=== PATIENT | female | born 1960 | race Caucasian/White ===

== ENCOUNTER 2017-08-24 10:50 | Emergency (ER) | payer BC ==
--- OUTSIDE RECORDS SUMMARY | 2017-08-24 11:01 | XMS REPORT ---
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 Active Onset: 12/03/2010 Uterine leiomyoma Catalina Weathers M.D. Active Onset: 12/11/2010 Arthralgia of the upper arm Loreta Johnson M.D. Active Onset: 01/27/2011 Myalgia & Myositis Unspec Catalina Weathers M.D. Active Onset: 02/07/2011 Arthralgia of the ankle and/or Catalina Weathers M.D. Active foot Onset: 02/07/2011 Crushing injury of foot Catalina Weathers M.D. Active Onset: 03/10/2011 Dyspnea Catalina Weathers M.D. Active Onset: 03/10/2011 Neck pain Catalina Weathers M.D. Active Onset: 04/25/2011 Arthralgia of the lower leg Catalina Weathers M.D. Active Onset: 08/16/2012 Low back pain Radha Brown M.D. Active Onset: 08/16/2012 Allergic condition Radha Brown M.D. Active Onset: 07/26/2017 Iron deficiency anemia secondary Radha Brown M.D. Active to inadequate dietary iron intake Onset: 07/26/2017 Irritable bowel syndrome with Radha Brown M.D. Active diarrhea Onset: 07/26/2017 Essential hypertension Radha Brown M.D. Active Onset: 06/16/2014 Acute frontal sinusitis Giancarlo Mackay M.D. Active Onset: 01/27/2011 Seizure Catalina Weathres M.D. Resolved Resolved: 03/24/2011 Family History Date Family Member(s) Problem(s) Comments Father due to of leukemia at 59 yo () Mother HTN, burst cerebral aneurysm now paralyzed on the left. Lives in [place] with step dad. First Son healthy. sleep disorder - hypersomnia. anxiety disorder, dissociative disorder. Number of Siblings Siblings: 2 First Brother healthy. [place]. Second Brother HTN. lives in [place]. estranged. First Sister age 40's dt kidnapping and murder. Adopted. 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 Cigarette Use Denies Tobacco Use ETOH Use Some Smoking Patient has never smoked Daily Caffeine Consumes on average 3 cups of tea per day Exercise Type/Frequency Exercises sporadically Current Allergies, Adverse Reactions, Alerts Date Description Reaction Status Severity Comments 02/07/2011 Cymbalta active severe nausea 12/03/2010 NKDA inactive Medications Medication Date Status Form Strength Qnty SIG Indications Ordering Provider Tramadol HCL Active Tablets 50mg 50tabs 1 by Radha Cervantes / mouth Kevin, every 6 M.D. hours as needed pain pune Debbie Vitamin Active 1000mg 1 po bid Unknown C With Lucy Hips / Debbie Vitamin Active 2000mg 2 po qd Unknown D3 Debbie Elrama 3 Active 1 po bid Unknown Fish Oil / [employer] Q10 Active 200mg 1 po bid Unknown / Eliquis Active Tablets 5mg 60tabs take one Radha L. tablet Kevin, by mouth M.D. twice a day Lisinopril Active Tablets 10mg 30tabs 1 by Radha L. / mouth Kevin, every M.D. day Ferrous Sulfate Active Tablets 325(65Fe) 100tabs 1 by Radha L. / mg mouth Kevin, every M.D. day Doxycycline 07/16 Hx Capsules 100mg 20caps 1 by Ana Paula Villa /2014 mouth Hakan, - twice a Afnp-C Augmentin 06/16 Hx Tablets 500-125mg 16tabs 1 by Giancarlo Bustamante /2014 mouth Thompson, - twice a M.D. With Meals Work Note 06/16 Hx patient Giancarlo Bustamante /2014 seen Thompson, - here M.D. 07/26 will be out of work for 3-4 days Clarithromycin 06/09 Hx Tablets 500mg 20tabs 1 by Lois Arteaga /2014 mouth Darlow, - twice a M.D. Piroxicam 05/10 Hx Capsules 20mg 30caps take one 724.2 Radha Megan capsule Kevin, - by mouth M.D. 07/26 day with food Cheratussin ac 04/17 Hx Syrup 100-10mg/ 150ml 5 ml 786.2 5ML every 12 Josette, - hrs prn [employer] 01/16 cough Proair HFA 04/17 Hx Aerosol 108(90Bas 1units 2 puffs 786.2 e) qid prn [place]akan, - mcg/Act cough / Afnp-C 07/26 wheeze Work Note 04/17 Hx pls 787.91 excuse Josette, - due to [employer] 01/16 illness /201304/22/13 Amoxicillin 03/27 Hx Tablets 875mg 28tabs 1 po bid 461.9 Josette, - [employer] 04/17 Brace With 03/27 Hx disp # 1 726.32 Lauraisaiah Pedrazaion, Elbow Josette, - [employer] 06/09 Omeprazole 02/05 Hx Tablets 20mg 30tabs [address] [facility] 04/17 [facility] [place] Gentamicin 02/05 Hx Solution 0.3% 1dropper 1-2 372.30 Richard Collado, Sulfate drops to M.D. - affected 03/27 every 3 hrs while awake Hydrochlorothiaz 10/08 Hx Tablets 25mg 30tabs Take One 782.3 Radha Cervantes chiara Tablet Kevin, - By Mouth M.D. 07/26 Every Day Amoxicillin/Clav 07/24 Hx Tablets 875-125mg 20tabs take one 382.00 Laura joseanate tab po Josette, Potassium - bid x 10 [employer] Start Low And Go 06/22 Hx Start at 724.2 Radha Cervantes Slow. /03/02 stephanie Brown, - each M.D. 02/04 way Piroxicam 04/19 Hx Capsules 20mg 30caps Take One 724.2 Radha Cervantes Capsule Kevin, - By Mouth M.D. 05/10 Day With Food Hydrocodone/Acet 04/02 Hx Tablets 5-500mg 40tabs 1 po 724.2 Cheng A. aminophen /2012 q4-6h Radha Hanson - prn pain 06/22 Cyclobenzaprine 04/02 Hx Tablets 5mg 20tabs one to 724.2 Richard Collado, HCL two M.D. - tablet 07/26 qhs prn /2017 Physical Therapy 04/02 Hx 1units treatmen 724.2 Cheng A. /2012 t and Radha Hanson - evaluati 06/22 on low back pain Acetaminophen/Co 11/17 Hx Tablets 300-30mg 20tabs 1-2 po 719.46 Radha avery #3 /2011 at hs. Kevin, - M.D. 03/08 Acetaminophen/Co 09/12 Hx Tablets 300-30mg 20tabs 1-2 po 729.5 Radha avery #3 /2011 at hs. Kevin - Radha 03/08 Piroxicam 09/12 Hx Capsules 20mg 30caps take 1 728.71 Radha L. /2011 capsule Kevin, - by mouth M.D. 04/02 once daily with food Ventolin HFA 08/08 Hx Aerosol 108(90Bas 1units inhale 2 Loreta M. /2011 e) mcg/ac puffs by LaFace, - mouth M.D. 06/22 every hours if needed Xopenex HFA 08/07 Hx Aerosol 45mcg/Act 1units 2 puffs 786.2 Loreta M. /2011 every 4 LaFace, - hours M.D. 08/07 prn Ceftin 08/07 Hx Tablets 250mg 14tabs 1 po bid 786.2 Loreta M. /2011 for 7 LaFace, - days M.D. 09/12 Proair HFA 08/07 Hx Aerosol 108(90Bas 1units 2 puffs Loreta M. e) mcg/ac every 4 LaFace, - hours as M.D. 06/22 Augmentin 06/28 Hx Tablets 875-125mg 20tabs 1 tab PO Giancarlo Bustamante bid Marvni Mackay M.D. 08/07 Tylenol Extra 05/30 Hx Tablets 500mg 2 Family Strength tablets Medicine - q 8 prn [facility] 07/26 for pain [facility] [place] /2017 Flexeril 03/10 Hx Tablets 10mg 30tabs 1 tab po Catalina Elizabeth /2011 q back Jasiel, - pain/spa M.D. 08/07 Stress Support 02/07 Hx Tablets 1 po qd Family Multivitamin /2010 Medicine - [facility] 06/22 [facility] [place] Herbal Tea For 02/07 Hx goldenro Family Sinus /2010 d, Medicine - echinace [facility] 06/22 a leaf, [facility] [place] birch bark, wild mint, goldense al, and peppermi nt Herbal Tea For 02/07 Hx willow, Family Arthritis /2010 birch Medicine - bark, St [facility] 06/22 [facility] wort, cleavers , nettle Tyra Extract 02/07 Hx passoin Family /2011 flower, Medicine - verain, Associates 06/22 oats, Of english chammile , Antonio's wort, skullcap Aller Aid W02/07 Hx vit c Family 250mg, Medicine - nettle [facility] 07/26 150mg, Of querceti n 275mg, N-acetyl e cysteine 300mg Ibuprofen 02/07 Hx Tablets 200mg 2 po q Family 12h with Medicine - food prn Associates 05/30 for pain Of Cymbalta 01/[address] 30mg 7caps 1 tab po Catalina D. Part qd x 1 [place], - week M.D. 02/07 Cymbalta 01/[address] 60mg 21caps 1 po qd Catalina D. Part Jasiel, - M.D. 02/07 Doxycycline 01/13 Hx Capsules 100mg 2caps 2 po one Luisbailey Mccrary Hymaruate time Fidelina, - M.D. 01/15 Physical Therapy 12/11 Hx right 719.42 Loreta M. elbow Alex, - pain, M.D. 01/13 lateral epicondy litis, assess and treat Elbow Strap For 12/11 Hx wear on 719.42 Loreta M. Tennis Elbow right LaFvirgie, - elbow as M.D. 01/13 Xray 12/11 Hx r elbow Loreta M. xray,dx Alex, - pain and M.D. 01/13 hx injury to r elbow as a child Augmentin 12/03 Hx Tablets 875-125mg 14tabs 1 tab PO Catalina D. bid x 7 [place], - days M.D. 12/11 Cephalexin 04/18 Hx Tablets 500mg 30tabs 1 po tid 466.0 Radha L. with Kevin - yogurt/k M.D. 12/03 efir Amoxicillin 04/29 Hx Capsules 500mg 30caps 1 po tid 461.0 Dione /2009 x 10d Beverly, - [employer] 12/03 Provigil 04/11 Hx Tablets 200mg 30tabs 1 po qam Marvin Munguia M.D. 12/25 dx: chronic fatigue syndrome Cymbalta 04/[address] 30mg Samples 1 po qd Part Marvin Munguia M.D. 12/25 Work Note 04/11 Hx pt has chronic Marvin Munguia fatigue Radha 12/25 which causes increase d somnolen ce and can decrease work producti vity at times Augmentin 03/04 Hx Tablets 500mg 20tabs 1 po bid 461.0 Cheng A. with Radha Hanson - food x 04/11 10 Zithromax 01/21 Hx Tablets 250mg 6Tabs 2 po qd 466.0 Dione today , Beverly, - then 1 [employer] 03/04 po qd times 4 Xopenex Hfa 01/21 Hx Aerosol 45mcg/Act 1units 2 puff 466.0 every Beverly, - 4-6 [employer] prn Note No Work 01/21 Hx karma 466.0 was seen Beverly - by id [employer] 04/11 for illness since \\ and may return to work tomorrow , Amoxicillin 12/24 Hx Tablets 875mg 20tabs 1 PO bid Marvin Munguia M.D. 01/21 Physical Therapy 10/16 Hx treatmen Jered Klein Viviana - evalulazara Garcia 01/21 on groin muscle strain Vitamin C 09/25 Hx Tablets 1000mg 0tabs 1 PO qd [facility] - [facility] 12/03 Of Multivitamins 09/25 Hx Tablets 1 PO qd [facility] 12/03 [place] Zithromax 04/11 Hx Tablets 250mg 3tabs 2 tabs 465.9 Cheng A. po for Radha Hanson - three 07/08 days then one tab po daily for three days Augmentin 03/14 Hx Tablets 500mg;125 20tabs one tab 465.9 Cheng A. mg po bid Radha Hanson - for 10 Xopenex 10/04 Hx Solution 0.63mg/3 1Box nebulize ML r q6h shahida Banerjee - prn M.DMegan 07/08 wheezing Albuterol 09/29 Hx Tablets Inhaler 3tabs 2 puffs qid prn Medicine - wheeze [facility] 07/08 [facility] [place] Prednisone 09/29 Hx Pills 20mg 25units 3 tabs x 2 days shahida Banerjee - then 2 M.DMegan 03/14 tabs 2 days then 1 tab for 2 days then 1/2 tab for 2 days Nebulizer 09/29 Hx 1units use as directed Marvin Munguia.DMegan 07/08 Out Of Work 09/29 Hx out of work for shahida Banerjee, - medical M.DMegan 03/14 illness until 10/02/06 Augmentin 09/23 Hx Tablets 875mg 20tabs 1 po bid Jered TMegan with Leticia, - food M.D. 03/14 Concerta 04/26 Hx Tablets 54mg 30tabs 1 po qd hsahida Banerjee - M.DMegan 03/14 Augmentin 04/03 Hx Tablets 875mg;125 28tabs 1 po bid mg shahida Banerjee - M.DMegan 04/26 Zithromax 03/22 Hx Capsules 250mg 6caps 2 tabs po x1, shahida Banerjee - then 1 M.D. 04/03 tab po qd x 4 more days Concerta 03/03 Hx Tablets 36mg 30tabs 1 po qd shahida Banerjee - M.DMegan 04/26 Aqua Therapy 03/02 Hx treatmen t and shahida Banerjee - evaluati M.DMegan 09/23 on chronic neck and back pain Physical Therapy 03/01 Hx treatmen t and shahida Banerjee - evaluati M.DMegan 03/02 on neck and back pain Methylin Er 02/17 Hx Tablets 10mg 30tabs 1 po qd Laura Marvin Munguia M.D. 03/03 Provigil 02/15 Hx Tablets 100mg 30tabs 100mg po qam,150m Medicine - g at 2pm Associates 02/15 [facility] [place] Ritalin 20 Hx Tablets Laura /2006 Marvin Munguia M.D. 02/15 Ritalin Er 02/15 Hx Tablets 10mg 30tabs 1 po qd Laura Marvin Munguia M.D. 02/17 Vitamin C W/ Hx Tablets 1000mg 1 po qd Unknown Bioflavonid / - 06/22 Elrama-3 Hx Capsules 1000mg Unknown / - 06/22 Vitamin D-3 Hx Tablets 2000Unit 1 po qd Unknown / - 06/22 Vitamin B Hx Capsules once Unknown Complex /0000 daily - 06/22 St [facility] Wort Hx prn Unknown Oil /0000 - 03/27 Piroxicam Hx Capsules 20mg 90caps 1 po qd Catalina D. /0000 Jasiel, - M.DMegan 04/02 Cyclobenzaprine Hx Tablets 10mg 30tabs Take 1 Catalina D. HCL /0000 Tablet [place], - By Mouth M.D. 08/07 AT Bedtime as Needed For Muscle Spasm /Back Pain Xopenex HFA Hx Aerosol 45mcg/Act 2 puffs Unknown /0000 qid prn - cough / 08/07 wheez Baclofen Hx Tablets 10mg take one Unknown /0000 to two - tablets 09/12 by mouth three times a day as needed for muscle spasms maximum daily dose of 6 per day [place] Chapter 40 + Hx 1 po bid Unknown Woman's /0000 Multivitamin - 07/26 Glucosamine Hx Tablets 1 po bid Unknown Chondroitin & /0000 MSM - 07/26 Magmind Hx 2 po Unknown Magnesium /0000 qam, 1 L-Threonate - po qhs 03/27 [facility] Oil Hx prn Unknown / - 03/27 Herb Tea Hx Unknown / - 03/27 New Chapter Hx 1 po bid Unknown Zyflamend / - 07/26 [place] Hx 800mg 2 po bid Unknown [place] Hol Basil - 03/27 Tramadol HCL ER Hx Tablets 100mg 60tabs 1 by Radha Cervantes /0000 ER 24HR mouth Kevin, - every M.D. 07/26 24h pune Vitamin B 12 Hx Lozenges 250mcg 2 bid Unknown - 07/26 Chlorhexidine Hx Solution 0.12% QS swish/sp Unknown Gluconate Oral / it with Rinse - one 07/26 two times a day Immunizations CPT Code Status Date Vaccine Lot # [id number] Given 12/14/2008 Tetanus And Diptheria Adult Preservative Free >7Yrs Vital Signs Date Vital Result Comment 07/26/2017 BP Systolic 116 mmHg BP Diastolic 62 mmHg Heart Rate 70 /min Body Temperature 98.1 F Respiratory Rate 16 /min Height 64 inches 5'4" Weight 295.31 lb BMI (Body Mass Index) 50.7 kg/m2 07/16/2014 BP Systolic 120 mmHg BP Diastolic 80 mmHg Body Temperature 98.5 F Respiratory Rate 18 /min Height 64 inches 5'4" Weight 294.00 lb BMI (Body Mass Index) 50.5 kg/m2 06/16/2014 BP Systolic 136 mmHg BP Diastolic 80 mmHg Heart Rate 72 /min Body Temperature 97.0 F Respiratory Rate 20 /min Height 64 inches 5'4" Weight 284.00 lb BMI (Body Mass Index) 48.7 kg/m2 06/09/2014 BP Systolic 130 mmHg BP Diastolic 86 mmHg Heart Rate 72 /min Body Temperature 98.1 F Respiratory Rate 20 /min O2 % BldC Oximetry 95 % Height 64 inches 5'4" Weight 285.00 lb BMI (Body Mass Index) 48.9 kg/m2 01/16/2014 BP Systolic 130 mmHg BP Diastolic 80 mmHg Heart Rate 60 /min Body Temperature 97.4 F Respiratory Rate 18 /min Height 64 inches 5'4" Weight 278.00 lb BMI (Body Mass Index) 47.7 kg/m2 05/11/2013 BP Systolic 120 mmHg BP Diastolic 84 mmHg Heart Rate 60 /min Body Temperature 98.1 F Respiratory Rate 18 /min O2 % BldC Oximetry 96 % Height 64 inches 5'4" Weight 263.00 lb BMI (Body Mass Index) 45.1 kg/m2 04/17/2013 BP Systolic 130 mmHg BP Diastolic 82 mmHg Heart Rate 72 /min Body Temperature 97.9 F Respiratory Rate 18 /min Height 64 inches 5'4" Weight 262.00 lb BMI (Body Mass Index) 45.0 kg/m2 03/27/2013 BP Systolic 120 mmHg BP Diastolic 88 mmHg Heart Rate 72 /min Body Temperature 97.5 F Respiratory Rate 17 /min Height 64 inches 5'4" Weight 266.00 lb BMI (Body Mass Index) 45.7 kg/m2 02/05/2013 BP Systolic 124 mmHg BP Diastolic 88 mmHg Heart Rate 84 /min Body Temperature 97.0 F Height 64 inches 5'4" Weight 265.50 lb BMI (Body Mass Index) 45.6 kg/m2 11/02/2012 BP Systolic 132 mmHg BP Diastolic 84 mmHg Heart Rate 72 /min Body Temperature 97.3 F Height 64 inches 5'4" Weight 275.50 lb BMI (Body Mass Index) 47.3 kg/m2 10/08/2012 BP Systolic 156 mmHg BP Diastolic 98 mmHg Heart Rate 66 /min Body Temperature 98.4 F Respiratory Rate 16 /min Height 64 inches 5'4" Weight 280.25 lb BMI (Body Mass Index) 48.1 kg/m2 08/23/2012 BP Systolic 138 mmHg BP Diastolic 80 mmHg Heart Rate 72 /min Body Temperature 98.1 F Respiratory Rate 18 /min Height 64 inches 5'4" Weight 288.00 lb BMI (Body Mass Index) 49.4 kg/m2 08/16/2012 BP Systolic 120 mmHg BP Diastolic 80 mmHg Heart Rate 80 /min Body Temperature 98.2 F Respiratory Rate 16 /min Height 64 inches 5'4" Weight 288.00 lb BMI (Body Mass Index) 49.4 kg/m2 07/24/2012 BP Systolic 140 mmHg BP Diastolic 88 mmHg Heart Rate 84 /min Body Temperature 97.0 F Height 64 inches 5'4" Weight 287.50 lb BMI (Body Mass Index) 49.3 kg/m2 06/22/2012 BP Systolic 160 mmHg BP Diastolic 100 mmHg Heart Rate 72 /min Body Temperature 97.3 F Height 64 inches 5'4" Weight 285.00 lb BMI (Body Mass Index) 48.9 kg/m2 04/19/2012 BP Systolic 150 mmHg BP Diastolic 90 mmHg Heart Rate 88 /min Height 64 inches 5'4" Weight 280.00 lb BMI (Body Mass Index) 48.1 kg/m2 04/02/2012 BP Systolic 140 mmHg BP Diastolic 90 mmHg Heart Rate 64 /min Body Temperature 98.4 F Height 64 inches 5'4" Weight 280.00 lb BMI (Body Mass Index) 48.1 kg/m2 03/08/2012 BP Systolic 120 mmHg BP Diastolic 88 mmHg Heart Rate 72 /min Body Temperature 98.0 F Height 64 inches 5'4" Weight 280.00 lb BMI (Body Mass Index) 48.1 kg/m2 11/18/2011 BP Systolic 152 mmHg BP Diastolic 88 mmHg Heart Rate 72 /min Body Temperature 97.8 F Height 64 inches 5'4" Weight 275.00 lb BMI (Body Mass Index) 47.2 kg/m2 09/13/2011 BP Systolic 150 mmHg BP Diastolic 80 mmHg Heart Rate 72 /min Body Temperature 98.7 F Height 64 inches 5'4" Weight 264.00 lb BMI (Body Mass Index) 45.3 kg/m2 08/08/2011 BP Systolic 138 mmHg BP Diastolic 88 mmHg Heart Rate 84 /min Body Temperature 100.3 F O2 % BldC Oximetry 95 % Height 64 inches 5'4" Weight 256.00 lb BMI (Body Mass Index) 43.9 kg/m2 06/29/2011 BP Systolic 140 mmHg BP Diastolic 80 mmHg Heart Rate 72 /min Body Temperature 98.9 F Height 64 inches 5'4" Weight 257.00 lb BMI (Body Mass Index) 44.1 kg/m2 05/31/2011 BP Systolic 160 mmHg BP Diastolic 100 mmHg Heart Rate 78 /min Body Temperature 98.3 F Height 64 inches 5'4" Weight 257.00 lb BMI (Body Mass Index) 44.1 kg/m2 04/25/2011 BP Systolic 158 mmHg BP Diastolic 100 mmHg Heart Rate 66 /min Body Temperature 97.2 F Height 64 inches 5'4" Weight 251.00 lb BMI (Body Mass Index) 43.1 kg/m2 03/24/2011 BP Systolic 130 mmHg BP Diastolic 70 mmHg Heart Rate 72 /min Respiratory Rate 14 /min Height 64 inches 5'4" Weight 247.00 lb BMI (Body Mass Index) 42.4 kg/m2 03/10/2011 BP Systolic 120 mmHg BP Diastolic 72 mmHg Heart Rate 78 /min Body Temperature 97.8 F Height 64 inches 5'4" Weight 247.00 lb BMI (Body Mass Index) 42.4 kg/m2 02/07/2011 BP Systolic 128 mmHg BP Diastolic 72 mmHg Heart Rate 66 /min Body Temperature 97.9 F Height 64 inches 5'4" Weight 249.00 lb BMI (Body Mass Index) 42.7 kg/m2 01/27/2011 BP Systolic 140 mmHg BP Diastolic 80 mmHg Heart Rate 76 /min Body Temperature 98.2 F Height 64 inches 5'4" Weight 246.00 lb BMI (Body Mass Index) 42.2 kg/m2 01/13/2011 BP Systolic 124 mmHg BP Diastolic 80 mmHg Heart Rate 76 /min Body Temperature 98.1 F Height 64 inches 5'4" Weight 245.00 lb BMI (Body Mass Index) 42.0 kg/m2 12/11/2010 BP Systolic 140 mmHg BP Diastolic 80 mmHg Heart Rate 62 /min Body Temperature 97.8 F Respiratory Rate 20 /min Height 64 inches 5'4" Weight 246.00 lb BMI (Body Mass Index) 42.2 kg/m2 12/03/2010 BP Systolic 142 mmHg BP Diastolic 100 mmHg Heart Rate 68 /min Body Temperature 97.6 F Weight 249.00 lb 04/29/2009 BP Systolic 128 mmHg BP Diastolic 84 mmHg Heart Rate 58 /min Body Temperature 97.1 F Respiratory Rate 18 /min Weight 256.00 lb 03/14/2009 BP Systolic 160 mmHg BP Diastolic 96 mmHg Heart Rate 78 /min Body Temperature 97.5 F Height 64 inches 5'4" Weight 258.00 lb BMI (Body Mass Index) 44.3 kg/m2 12/25/2008 BP Systolic 130 mmHg BP Diastolic 80 mmHg Heart Rate 80 /min Body Temperature 99.7 F Height 64 inches 5'4" Weight 259.00 lb BMI (Body Mass Index) 44.5 kg/m2 04/11/2008 BP Systolic 136 mmHg BP Diastolic 84 mmHg Heart Rate 88 /min Height 64 inches 5'4" Weight 254.00 lb BMI (Body Mass Index) 43.6 kg/m2 03/04/2008 BP Systolic 120 mmHg BP Diastolic 80 mmHg Heart Rate 72 /min Body Temperature 97.9 F Height 64 inches 5'4" Weight 254.00 lb BMI (Body Mass Index) 43.6 kg/m2 01/22/2008 BP Systolic 122 mmHg BP Diastolic 80 mmHg Heart Rate 80 /min Body Temperature 98.6 F Height 64 inches 5'4" Weight 248.00 lb BMI (Body Mass Index) 42.6 kg/m2 10/17/2007 BP Systolic 132 mmHg BP Diastolic 80 mmHg Heart Rate 64 /min Body Temperature 98.2 F Respiratory Rate 16 /min Height 64 inches 5'4" Weight 250.00 lb BMI (Body Mass Index) 42.9 kg/m2 09/26/2007 BP Systolic 126 mmHg BP Diastolic 80 mmHg Heart Rate 72 /min Height 64 inches 5'4" Weight 249.00 lb BMI (Body Mass Index) 42.7 kg/m2 07/09/2007 BP Systolic 120 mmHg BP Diastolic 70 mmHg Heart Rate 68 /min Body Temperature 98.0 F Height 64 inches 5'4" Weight 249.00 lb BMI (Body Mass Index) 42.7 kg/m2 04/11/2007 BP Systolic 118 mmHg BP Diastolic 70 mmHg Heart Rate 80 /min Body Temperature 98.6 F Height 64 inches 5'4" Weight 245.00 lb BMI (Body Mass Index) 42.0 kg/m2 03/14/2007 BP Systolic 128 mmHg BP Diastolic 70 mmHg Heart Rate 90 /min Body Temperature 98.4 F Respiratory Rate 24 /min O2 % BldC Oximetry 97 % Height 64 inches 5'4" Weight 244.00 lb BMI (Body Mass Index) 41.9 kg/m2 10/04/2006 BP Systolic 128 mmHg BP Diastolic 80 mmHg Heart Rate 84 /min Body Temperature 98.6 F Height 64 inches 5'4" Weight 231.00 lb BMI (Body Mass Index) 39.6 kg/m2 09/29/2006 BP Systolic 120 mmHg BP Diastolic 80 mmHg Body Temperature 99.1 F Height 64 inches 5'4" 09/23/2006 BP Systolic 118 mmHg BP Diastolic 74 mmHg Heart Rate 74 /min Body Temperature 99.7 F Height 64 inches 5'4" Weight 234.00 lb BMI (Body Mass Index) 40.2 kg/m2 07/14/2006 BP Systolic 110 mmHg BP Diastolic 70 mmHg Heart Rate 72 /min Body Temperature 98.1 F Height 64 inches 5'4" Weight 239.00 lb BMI (Body Mass Index) 41.0 kg/m2 04/03/2006 BP Systolic 136 mmHg BP Diastolic 72 mmHg Heart Rate 72 /min Height 64 inches 5'4" Weight 239.00 lb BMI (Body Mass Index) 41.0 kg/m2 02/15/2006 BP Systolic 130 mmHg BP Diastolic 72 mmHg Heart Rate 76 /min Height 64 inches 5'4" Weight 244.00 lb BMI (Body Mass Index) 41.9 kg/m2 Results Test Date Test Result H/L Range Note Hep C Abs 01/16/2014 Hep C Antibody NON-REACTIVE Non-Reactive 1 Hep C S/Co Ratio 0.1 0.0-0.7 1 Laboratory test finding 01/16/2014 Vitamin D25 109 High 30-100 2 TSH 2.71 mIU/L 0.50-6.00 Free T4 1.18 ng/dL 0.75-1.54 Ua - Non Micro ([facility]) 01/16/2014 Appearance CLEAR Color YELLOW Glucose, Urine (a/CMC/CTX) NEG Bilirubin NEG Ketones NEG SP Grav 1.015 Blood NEG PH 7.0 Protein NEG Urobil 0.2 Nitrite NEG Leukocytes (a/[facility]) NEG Laboratory test finding 01/16/2014 Hemoglobin A1c (a/CMC,CX) 5.9 % High 4.1-5.7 CBC Electronic ([facility]) 05/11/2013 WBC 4.9 3.6-9.6 RBC 4.45 3.90-5.70 Hemoglobin (a/CMC/CTX) 13.3 g/dL 12.1 - 17.2 Hematocrit (a/CMC/CTX) 40.7 % 36.1 - 50.3 Platelets 353 10^3/ul 150-400 Lymph% 47.8 % 17.0-48.0 Mixed% 5.2 Neutrophils % 47.0 Mean Corpuscular Vol 92 82.2-97.4 Mean Corpuscular Hemoglobin 30.0 27.6-33.3 Mean Corpuscular Hemo Concen 32.7 32.0-36.0 RDW 14.1 High 11.6-13.7 Mean Platelet Volume 8.5 5.5-11.0 Basic Metabolic Profile 05/11/2013 Sodium 142 mEq/L 134-149 Potassium 3.9 mEq/L 3.6-5.5 Chloride 102 mEq/L 94-112 Carbon Dioxide 26 mEq/L 21-32 Glucose 106 mg/dL High 70-105 3 BUN 20 mg/dL 6-26 Creatinine 1.0 mg/dL 0.6-1.4 BUN/Creat Ratio 20.0 CALC 8.0-36.0 Calcium 9.3 mg/dL 8.6-10.2 Influenza A&B 04/17/2013 Influenza A NEG Influenza B NEG Laboratory test finding 10/27/2012 Vitamin D, 25 Oh 81.6 ng/mL 30.0- 100.0 4 Basic Metabolic Profile 10/27/2012 BUN 13 mg/dL 6-26 Calcium 8.9 mg/dL 8.6-10.2 Chloride 100 mEq/L 94-112 Creatinine 1.0 mg/dL 0.6-1.4 Carbon Dioxide 26 mEq/L 21-32 Glucose 115 mg/dL High 70-105 5 Sodium 139 mEq/L 134-149 Potassium 3.7 mEq/L 3.6-5.5 BUN/Creat Ratio 13.2 Calc 8.0-36.0 Laboratory test finding 10/27/2012 Magnesium 2.3 mEq/L High 1.2-2.1 6 Lipid Profile 10/27/2012 Cholesterol 240 mg/dL High 120-200 HDL 40 mg/dL 30-85 Triglycerides 175 mg/dL 30-200 HDL Risk Factor 5.9 CALC High 0.0-4.4 LDL (Calculated) 164 CALC High 0-129 VLDL (Calculated) 35 mg/dL 0-50 Laboratory test finding 08/18/2012 Troponin I 0 ng/mL 0-0.06 7 Serum Negative Negative 8 CKMB 08/18/2012 CKMB ng/mL 1.6 ng/mL 0.3-4.0 9 Laboratory test finding 08/18/2012 Lipase 22 U/L 22-51 10 Creatine Kinase 166 U/L 0-200 11 Comp Metabolic Panel 08/18/2012 Sodium 140 mmol/L 133-145 Potassium 4.1 mmol/L 3.5-5.0 Chloride 108 mmol/L 101-111 Co2 Carbon Dioxide 24.0 mmol/L 22-32 Anion Gap 8.0 mmol/L 2-11 Glucose 87 mg/dL 70-100 Blood Urea Nitrogen 11 mg/dL 6-24 Creatinine 0.70 mg/dL 0.50-1.40 BUN/Creatinine Ratio 15.7 8-20 Calcium 9.2 mg/dL 8.1-9.9 Total Protein 6.6 g/dL 6.2-8.1 Albumin 3.3 g/dL Low 3.6-5.4 Globulin 3.3 g/dL 2-4 Albumin/Globulin Ratio 1.0 1-3 Total Bilirubin 0.6 mg/dL 0.4-1.5 Alkaline Phosphatase 72 U/L 30-110 Alt 28 U/L 14-54 Ast 31 U/L 12-42 Egfr Non- 87.5 >60 Egfr 112.6 >60 12 Laboratory test finding 08/18/2012 Activated Partial 27.1 seconds 22.18- 37.18 13 Thrombo Time CBC Auto Diff 08/18/2012 White Blood Count 5.8 10^3/uL 4.8-10.8 Red Blood Count 4.26 10^6/uL 4.0-5.4 Hemoglobin 12.8 g/dL 12.0-16.0 Hematocrit 39 % 35-47 Mean Corpuscular Volume 92 fL 80-97 Mean Corpuscular Hemoglobin 30 pg 27-31 Mean Corpuscular HGB Conc 33 g/dL 31-36 Red Cell Distribution Width 14 % 10.5-15 Platelet Count 294 10^3/uL 150-450 Mean Platelet Volume 9 um3 7.4-10.4 Abs Neutrophils 2.5 10^3/uL 1.5-7.7 Abs Lymphocytes 2.4 10^3/uL 1.0-4.8 Abs Monocytes 0.6 10^3/uL 0-0.8 Abs Eosinophils 0.3 10^3/uL 0-0.6 Abs Basophils 0.1 10^3/uL 0-0.2 Abs Nucleated RBC 0 10^3/uL Granulocyte % 42.6 % 38-83 Lymphocyte % 42.1 % 25-47 Monocyte % 9.9 % High 1-9 Eosinophil % 4.4 % 0-6 Basophil % 1.0 % 0-2 Nucleated Red Blood Cells % 0.1 Inr/Protime 08/18/2012 Inr 0.91 0.87-0.97 Ua - Micro (a) 04/24/2012 Appearance CLEAR Color YELLOW Glucose NEG Bilirubin NEG Ketones NEG SP Grav <=1.005 Blood NEG PH 5.5 Protein NEG Urobil 0.2 Nitrite NEG Leukocytes (Fma/CMC/Centrex) NEG Hyaline - /Lpf Granular - /Lpf WBC (a,Centrex) 0-1 RBC 0-1 Mucus - /Lpf Epith RARE /Lpf Bacteria RARE /Hpf Amorphous - /Lpf Crystals, Fluid (Fma/CMC/CTX) - Z#Comments - Laboratory test finding 01/13/2012 Clotest (SEE NOTE) 14 Laboratory test finding 01/12/2012 Surgical Pathology RUN DATE: <SEE NOTE> CBC Auto Diff 11/18/2011 White Blood Count 6.9 CUMM 4.8-10.8 Red Cell Count 4.03 CUMM Low 4.2-5.4 Hemoglobin 12.6 g/dL 12.0-16.0 Hematocrit 37 % 35-47 Mean Corpuscular Volume 93 um3 79-97 Mean Corpuscular Hemoglob 31 pg 27-31 Mean Corpuscular HGB Cone 34 g/dL 32-36 Redcell Distribution WDTH 14 % 10.5-15 Platelet Count 296 CUMM 150-450 Mean Platelet Volume 8.7 um3 7.4-10.4 Gran % 54.8 % 38-83 Lymph % 33.6 % 20-45 Mononuclear % 7.1 % 1-9 Eosinophil % 3.9 % 0-6 Basophil % 0.6 % 0-2 Abs Lymphs 2.3 1.0-4.8 Abs Mononuclear 0.5 0-0.8 Absolute Neutrophil Count 3.8 1.5-7.7 Abs Eosinophils 0.3 0-0.6 Abs Basophils 0 0-0.2 Laboratory test finding 11/18/2011 Carbon Monoxide 3.0 % 16 Laboratory test finding 03/15/2011 C Reactive Protein 0.5 mg/dL Less Than 0.5 17 CBC Auto Diff 03/15/2011 White Blood Count 6.8 CUMM 4.8-10.8 17 Red Cell Count 4.46 CUMM 4.2-5.4 17 Hemoglobin 13.8 g/dL 12.0-16.0 17 Hematocrit 40 % 35-47 17 Mean Corpuscular Volume 90 um3 79-97 17 Mean Corpuscular Hemoglob 31 pg 27-31 17 Mean Corpuscular HGB Cone 34 g/dL 32-36 17 Redcell Distribution WDTH 14 % 10.5-15 17 Platelet Count 287 CUMM 150-450 17 Mean Platelet Volume 8.9 um3 7.4-10.4 17 Gran % 61.4 % 38-83 17 Lymph % 29.7 % 25-47 17 Mononuclear % 6.0 % 1-9 17 Eosinophil % 2.6 % 0-6 17 Basophil % 0.3 % 0-2 17 Abs Lymphs 2.0 1.0-4.8 17 Abs Mononuclear 0.4 0-0.8 17 Absolute Neutrophil Count 4.2 1.5-7.7 17 Abs Eosinophils 0.2 0-0.6 17 Abs Basophils 0 0-0.2 17 Laboratory test finding 03/15/2011 Erythrocyte Sed Rate 44 MM/HR High 0- 30 17 Hla B27 Negative () 17, 18 Lyme Disease Serology Negative Negative 17, 19 Rheumatoid Factor < 15 IU/mL <15 17, 20 Muna (Antinuclear Antibodies) NEGATIVE Negative 17 Ua - Non Micro (Fma) 02/07/2011 Appearance CLEAR Color YELLOW Glucose NEG Bilirubin NEG Ketones TRACE SP Grav 1.0203 Blood NEG PH 6.0 Protein NEG Urobil 0.2 Nitrite NEG Leukocytes (Fma/CMC/Centrex) NEG CBC Auto Diff 01/21/2011 White Blood Count 4.3 CUMM Low 4.8-10.8 Red Cell Count 4.55 CUMM 4.2-5.4 Hemoglobin 14.3 g/dL 12.0-16.0 Hematocrit 41 % 35-47 Mean Corpuscular Volume 91 um3 79-97 Mean Corpuscular Hemoglob 31 pg 27-31 Mean Corpuscular HGB Cone 35 g/dL 32-36 Redcell Distribution WDTH 13 % 10.5-15 Platelet Count 270 CUMM 150-450 Mean Platelet Volume 9.1 um3 7.4-10.4 Gran % 45.0 % 38-83 Lymph % 42.5 % 25-47 Mononuclear % 8.2 % 1-9 Eosinophil % 3.7 % 0-6 Basophil % 0.6 % 0-2 Abs Lymphs 1.8 1.0-4.8 Abs Mononuclear 0.4 0-0.8 Absolute Neutrophil Count 1.9 1.5-7.7 Abs Eosinophils 0.2 0-0.6 Abs Basophils 0 0-0.2 Comp Metabolic Panel 01/21/2011 Sodium 139 mmol/L 135-145 Potassium 4.1 mmol/L 3.5-5.0 Chloride 107 mmol/L 101-111 Co2 (Carbon Dioxide) 25.0 mmol/L 22-32 Anion Gap 7.0 mmol/L 2-11 21 Glucose 97 mg/dL 70-100 BUN 12 mg/dL 6-24 Creatinine 0.8 mg/dL 0.50-1.40 One Over Creatinine 1.25 BUN/Creatinine Ratio 15.0 8-20 Calcium 8.8 mg/dL 8.1-9.9 Total Protein 7.8 GM/DL 6.2-8.1 Albumin 4.0 GM/DL 3.6-5.4 Globulin 3.8 GM/DL 2-4 Albumin/Globulin Ratio 1.1 1-3 Bilirubin Total 0.5 mg/dL 0.4-1.5 22 Alkaline Phosphatase 75 U/L 30-110 Alt (SGPT) 28 U/L 14-54 Ast (Sgot) 31 U/L 12-42 eGFR Non- 75.3 > 60 eGFR 96.9 > 60 23 Laboratory test finding 01/21/2011 Troponin-I 0 NG/ML 0-0.06 24 Comprehensive Metabolic Prof 12/24/2010 Albumin 4.3 g/dL 3.8-5.5 Alk. Phos. 83 U/L 30-110 Alt (SGPT) 23 U/L 7-35 Ast (Sgot) 27 U/L 5-34 BUN 16 mg/dL 6-26 Calcium 9.2 mg/dL 8.6-10.2 Chloride 107 mEq/L 94-112 Creatinine 0.8 mg/dL 0.6-1.4 Carbon Dioxide 24 mEq/L 21-32 Glucose 109 mg/dL High 70-105 Sodium 138 mEq/L 134-149 Total Bilirubin 0.3 mg/dL 0.2-1.3 Total Protein 7.2 g/dL 6.3-8.1 Potassium 4.0 mEq/L 3.6-5.5 Globulin 2.9 g/dL 2.0-4.8 A/G Ratio 1.5 Calc 0.6-2.2 BUN/Creat Ratio 18.5 Calc 8.0-36.0 Lipid Profile 12/24/2010 Cholesterol 210 mg/dL High 120-200 HDL 53 mg/dL 30-85 Triglycerides 60 mg/dL 30-200 HDL Risk Factor 4.0 CALC 0.0-4.0 LDL (Calculated) 145 CALC High 0-129 VLDL (Calculated) 12 mg/dL 0-50 Laboratory test finding 12/24/2010 TSH 2.91 mIU/L 0.50-6.00 CBC Electronic (Fma) 12/24/2010 WBC 5.9 3.6-9.6 RBC 4.61 3.90-5.70 Hemoglobin (Fma/CMC/CTX) 14.0 g/dL 12.1 - 17.2 Hematocrit (Fma/CMC/CTX) 42.2 % 36.1 - 50.3 Platelets 310 10^3/ul 150-400 Lymph% 33.3 20.5-51.1 Mixed% 8.3 Neutrophils % 58.4 Mean Corpuscular Vol 91 82.2-97.4 Mean Corpuscular Hemoglobin 30.4 27.6-33.3 Mean Corpuscular Hemo Concen 33.2 32.0-36.0 RDW 12.6 11.6-13.7 Mean Platelet Volume 8.5 6.5-11.0 Urinalysis Stat 09/01/2008 Ua Color YELLOW Appearance-Urine CLEAR Specific [place]-Ur 1.006 Low 1.010-1.030 Esterase-Urine NEGATIVE Negative Nitrite NEGATIVE Negative Lbdyybflvnvt-To-PBS NEGATIVE Negative Protein-Urine NEGATIVE Negative PH-Urine 6.0 5-9 Blood-Urine NEGATIVE Negative Ketones-Urine NEGATIVE Negative Bilirubin-Ur NEGATIVE Negative Glucose-Urine NEGATIVE Negative CBC With Electronic Diff Stat 09/01/2008 White Blood Count 7.5 CUMM 4.8- 10.8 Red Cell Count 4.37 CUMM 4.2-5.4 Hemoglobin 12.9 g/dL 12.0-16.0 Hematocrit 38 % 35-47 Mean Corpuscular Volume 88 um3 79-97 Mean Corpuscular Hemoglob 30 pg 27-31 Mean Corpuscular HGB Cone 34 g/dL 32-36 Redcell Distribution WDTH 14 % 10.5-15 Platelet Count 375 CUMM 150-450 Mean Platelet Volume 7.9 um3 7.4-10.4 Gran % 57.7 % 38-83 Lymph % 29.4 % 25-47 Mononuclear % 9.1 % High 1-9 Eosinophil % 3.1 % 0-6 Basophil % 0.7 % 0-2 Abs Lymphs 2.2 1.0-4.8 Abs Mononuclear 0.7 0-0.8 Absolute Neutrophil Count 4.3 1.5-7.7 Abs Eosinophils 0.2 0-0.6 Abs Basophils 0 0-0.2 Comp Stat 09/01/2008 Sodium 137 mmol/L 135-145 Potassium 3.8 mmol/L 3.5-5.0 Chloride 105 mmol/L 101-111 Co2 (Carbon Dioxide) 24.0 mmol/L 22-32 Anion Gap 8.0 mmol/L 2-11 25 Glucose 100 mg/dL 70-100 26 BUN 9 mg/dL 6-24 Creatinine 0.80 mg/dL 0.50-1.40 One Over Creatinine 1.20 BUN/Creatinine Ratio 11.3 8-20 Calcium 9.0 mg/dL 8.1-9.9 27 Total Protein 7.2 GM/DL 6.2-8.1 Albumin 3.6 GM/DL 3.6-5.4 Globulin 3.6 GM/DL 2-4 Albumin/Globulin Ratio 1.0 1-3 Bilirubin Total 0.6 mg/dL 0.4-1.5 28 Alkaline Phosphatase 80 U/L 30-110 Alt (SGPT) 20 U/L 14-54 Ast (Sgot) 26 U/L 12-42 eGFR Non- 80.7 > 60 eGFR 97.6 > 60 29 Laboratory test finding 09/01/2008 Troponin-I (TnI) 0.01 NG/ML 0-0.06 30 Comprehensive Metabolic Prof 04/11/2008 Albumin 4.0 g/dL 3.8-5.5 Alk. Phos. 66 U/L 30-110 Alt (SGPT) 16 U/L 7-35 Ast (Sgot) 30 U/L 5-34 BUN 16 mg/dL 6-26 Calcium 8.7 mg/dL 8.6-10.2 Chloride 105 mEq/L 94-112 Creatinine 0.9 mg/dL 0.6-1.4 Carbon Dioxide 21 mEq/L 21-32 Glucose 123 mg/dL High 70-105 Sodium 137 mEq/L 134-149 Total Bilirubin 0.2 mg/dL 0.2-1.3 Total Protein 7.3 g/dL 6.3-8.1 Potassium 3.9 mEq/L 3.6-5.5 Globulin 3.2 g/dL 2.0-4.8 A/G Ratio 1.3 Calc 0.6-2.2 BUN/Creat Ratio 18.5 Calc 8.0-36.0 Complete Blood Count 04/11/2008 WBC 7.6 x10^3/uL 3.6-9.6 Gran# 4.9 x10^3/uL 1.5-7.2 Gran% 64.4 % 42.2-75.2 HCT 40 % 36-50 HGB 13.4 g/dL 12.1-17.2 Lymph# 2.4 x10^3/uL 0.7-4.9 Lymph% 31.1 % 20.5-51.1 MCH 28.2 pg 27.6-33.3 MCV 84.0 fL 82.2-97.4 MCHC 33.6 g/dL 33.0-35.5 Mo# 0.3 x10^3/uL 0.1-0.9 Mo% 4.5 % 1.7-9.3 MPV 8.1 fL 7.4-10.4 PLT 430 x10^3/uL High 150-400 RBC 4.76 x10^6/uL 3.90-5.70 RDW 14.4 % High 11.6-13.7 Laboratory test finding 04/11/2008 TSH 2.70 mIU/L 0.50-6.00 Laboratory test finding 04/11/2007 Quickstrep NEGATIVE Negative Throat - Beta Strep Fma NEG @ 48 HOURS Laboratory test finding 10/08/2006 Aluminum Whole Blood < 5.0 UG/L < 20.0 31 Manual Differential 09/29/2006 S. Neutrophils 29 B. Neutrophils 7 Metamyelocytes 53 Myelocytes 9 Promyelocytes - Nucleated RBC - Blast Cells - Lymphocytes - Atypical Lymphs 2 Monocytes - Eosinophils - Basophils - Polychromasia - Hypochromasia - Poikilocytosis - Target Cells - Spherocytosis - Anisocytosis - Microcytosis - Sickle Cells - Basophilic Stippling - Vacuoles - Toxic Granulation - Macrocytosis - Platelet Estimate - Morphology SEE DETAIL 32 Morphology Comment 1 - Morphology Comment 2 - Morphology Comment 3 - Morphology Comment 4 - Laboratory test finding 09/29/2006 Monospot (Fma/Centrex) NEGATIVE Hemogram W/PLT 09/29/2006 WBC 4.3 x10\\S\\3/uL 3.6-9.6 HCT 38 % 36-50 HGB 13.3 g/dL 12.1-17.2 MCH 30.0 pg 27.6-33.3 MCV 85.8 fL 82.2-97.4 MCHC 35.0 g/dL 33.0-35.5 PLT 287 x10\\S\\3/uL 150-400 RBC 4.43 x10\\S\\6/uL 3.90-5.70 RDW 14.3 % High 11.6-13.7 Laboratory test finding 04/03/2006 B12 (a/CMC/Centrex) 375 pg/mL 230- 1050 Folic Acid (Fma/CMC/Centrex) 12.94 NG/ML 3.00-16.00 Laboratory test finding 04/03/2006 Prealbumin 22.6 mg/dL 20.0-40.0 CBC Electronic-ALL Lab Compani 03/01/2006 WBC 5.6 3.6-9.6 RBC 4.46 3.90-5.70 Hemoglobin (Fma/CMC/CTX) 12.9 g/dL 12.1 - 17.2 Hematocrit (Fma/CMC/CTX) 39 % 36.1 - 50.3 Mean Corpuscular Vol 86.5 82.2-97.4 Mean Corpuscular Hemaglobin 29.0 27.6-33.3 Mean Corpuscular Hemo Concen 33.5 33.0-36.0 RDW 14.2 High 11.6-13.7 Platelets 354 10^3/ul 150-400 Mean Platelet Volume 8.9 7.4-10.4 Neutrophils - Lymphocytes 43.3 % 20.5 - 51.1 Monocytes 8.0 % 1.7-9.3 Eosinophil - Basophil% - Abs Neutrophils - Abs Lymphs - Abs Mononuclear - Abs Eosinophils - Abs Basophils - Comp Metabolic-ALL Lab 03/01/2006 Glucose, Serum 96 mg/dL 70-105 Compani (Fma/CMC/CTX) BUN (Fma/CMC/Centrex) 11 mg/dL 6-26 Creatinine (Fma/CMC/CTX) 0.9 mg/dL 0.6-1.4 Sodium 143 134-149 Potassium 4.3 3.6-5.5 Chloride 106 mEq/L 94-112 Co2 26 21-32 Albumin (Fma/CMCC/Centrex) 4.0 3.8-5.5 Total Protein 7.5 g/dL 6.3-8.1 Calcium (Fma/CMC/Centrex) 8.7 mg/dL 8.6-10.2 Alkaline Phosphatase (F/C/CTX) 75 U/L 30-110 Ast (Sgot) (Fma/CMC/Centrex) 19 U/mL 5-34 Alt (SGPT) (CMC/Centrex) 13 10-40 Bilirubin, Total 0.3 mg/dL 0.2-1.3 #GFR, Calculated (CTX) - Lipid Panel-ALL Lab 03/01/2006 Cholesterol 218 mg/dL High 120-200 Companies (Fma/CMC/Centrex) HDL-Chol 42 mg/dL 30-85 Triglyceride 113 mg/dL 30-200 LDL/HDL Chol. Ratio (F/C/CTX) - Chol./HDL Ratio (Fma/CMC/CTX) - Low 30-85 LDL, Calculated (Centrex) 153 mg/dL High 0-129 HDL Risk Factor (Fma) 5.1 CALC 4.2-7.0 Laboratory test finding 03/01/2006 TSH (Fma/CMC/Centrex) 5.64 uIU/ml 0.5- 6.0 1 1 SST 2 RESULTS VERIFIED BY REPEAT ANALYSIS 3 RESULTS VERIFIED BY REPEAT ANALYSIS 4 Vitamin D deficiency has been defined by the [place] of Medicine and an Endocrine Society practice guideline as a level of serum 25-OH vitamin D less than 20 ng/mL (1,2). The Endocrine Society went on to further define vitamin D insufficiency as a level between 21 and 29 ng/mL (2). 1. IOM ([place] of Medicine). 2010. Dietary reference intakes for calcium and D. [place]: The National Academies Press. 2. Tc MF, Smith ARIAS, Jael TORO, et al. Evaluation, treatment, and prevention of vitamin D deficiency: an Endocrine Society clinical practice guideline. JCEM. 2010; 96(7):1911-30. 5 RESULT VALDEMAR'D 6 RESULT VALDEMAR'D 7 Reference Range and Interpretation: TnI (ng/mL) Interpretation Less Than 0.06 ng/mL Not supportive of diagnosis of [place] 0.06 - 0.50 ng/mL Indeterminate: suggest serial studies if clinically indicated. Greater than 0.5 ng/mL Consistent with diagnosis of IL 8 This test detects intact HCG only and is indicated for the early detection of . 9 CKMB interpretation should be made in conjunction with clinical symptoms, patient history and EKG changes. 10 Comment: b Comment: stephen Comment: c Comment: s 11 Comment: b Comment: d Comment: c Comment: s 12 Because ethnic data is not always readily available, this report includes an eGFR for both -Americans and non- Americans. The National Kidney Disease Education Program (NKDEP) does not endorse the use of the MDRD equation for patients that are not between the ages of 18 and 70, are , have extremes of body size, muscle mass, or nutritional status, or are non- or non-. According to the National Kidney Foundation, irrespective of diagnosis, the stage of the disease is based on the level of kidney function: Stage Description GFR(mL/min/1.73 m(2)) 1 Kidney damage with normal or decreased GFR 90 2 Kidney damage with mild decrease in GFR 60-89 3 Moderate decrease in GFR 30-59 4 Severe decrease in GFR 15-29 5 Kidney failure <15 (or dialysis) 13 Comment: n Comment: d 14 RUN DATE: 01/14/12 [facility] LAB LIVE PAGE 1 RUN TIME: [address] [place] [id number] Specimen Inquiry Name: KARMA BRYSON Ba : [address]: Nel COLLAZO,Norm Elizabeth Acct: [id number] Unit: [id number] AGE: 51 Location: ENDO Re01/13/12 SEX: F Status: REG REF SPEC: [id number] CELSA: 01/13/[address]: Nel COLLAZO, Norm Elizabeth REQ: [id number] RECD: 01/13/12 STATUS: KHOA SAUNDERS DR: Radha Brown MD _ SOURCE: CLOTEST [facility]: ORDERED: Clotest Procedure Result Verified Site Clotest Final 01/14/12738 ML Clotest Negative END OF REPORT * ML=Testing performed at Main Lab DEPARTMENT OF PATHOLOGY, [facility] [employer] [place], [place] [address] Israel Mora M.D. Director [facility] Permit #[id number] RUN DATE: 01/16/12 [facility] LAB LIVE PAGE 1 RUN TIME: 8843 [facility] [employer] [place], [place] [address] Specimen Inquiry Name: KARMA BRYSON : [address]: Norm Neumann MD Acct: [id number] Unit: [id number] AGE: 51 Location: ENDO Re01/13/12 SEX: F Status: REG REF SPEC: [id number] CELSA: 01/12/12- SUBM DR: Norm Neumann MD REQ: [id number] RECD: 01/13/122104 STATUS: KATARZYNA SAUNDERS DR: Radha Brown MD _ ORDERED: LEVEL IV FINAL DIAGNOSIS Esophagus, ring, biopsy: A. Gastroesophageal transition zone mucosa with reflux esophagitis. B. No goblet cell metaplasia or dysplasia is identified. CLINICAL HISTORY Dysphagia POST-OPERATIVE DIAGNOSIS Esophagus - wide ring, biopsied, grade A erosive esophagitis; stomach - gastritis, biopsied; duodenum - normal GROSS DESCRIPTION The specimen is received in formalin labelled Karma Arteaga Michelle, Biopsy Esophageal Ring, and consists of multiple nichole, soft tissue fragments measuring 0.8 x 0.3 x 0.2 cm. Submitted entirely, one cassette. Signed (signature on file) Israel Mora MD 1535 END OF REPORT * ML=Testing performed at Main Lab DEPARTMENT OF PATHOLOGY, [address] [place] [address] Israel Mora M.D. Director [facility] Permit #[id number] NORMAL RANGE: NONSMOKERS: LESS THAN 5% HEAVY SMOKERS: LESS THAN 10% LIFE THREATENING: OVER 15 % [address] OGDEN AT FAX NUMBER [phone] 18 -- REFERENCE VALUE -- Not Applicable 19 Serologic response to B. burgdorferi infection is not detected, but cannot rule out early infection during which low or undetectable antibody levels to B. burgdorferi may be present. If clinically indicated, a new serum specimen should be submitted in 7-14 days. Test Performed by: [facility] Dpt of Lab Med and Pathology [address] [place] [address] Chief Investigator: Vivek Silverio III, M.D. 20 Test Performed by: [facility] Dpt of Lab Med and Pathology [address] [place] [address] Chief Investigator: Vivek Silverio III, M.D. 21 Anion gap measurement may be of limited value in the presence of any alkalosis, especially in a combined acid base disorder. . 22 A metabolite of Naproxen, O-desmethylnaproxen, has been shown to interfere with the Jendrassik-Yeison method for measuring total bilirubin. Samples from patients who have taken Naproxen have shown spurious elevation in total bilirubin levels. 23 Because ethnic data is not always readily available, this report includes an eGFR for both -Americans and non- Americans. The National Kidney Disease Education Program (NKDEP) does not endorse the use of the MDRD equation for patients that are not between the ages of 18 and 70, are , have extremes of body size, muscle mass, or nutritional status, or are non- or non-. According to the National Kidney Foundation, irrespective of diagnosis, the stage of the disease is based on the level of kidney function: Stage Description GFR(mL/min/1.73 m(2)) 1 Kidney damage with normal or decreased GFR 90 2 Kidney damage with mild decrease in GFR 60-89 3 Moderate decrease in GFR 30-59 4 Severe decrease in GFR 15-29 5 Kidney failure <15 (or dialysis) 24 New Reference Range and Interpretation effective 11/30/2001 TnI (ng/ml) INTERPRETATION Less Than 0.06 ng/mL NOT SUPPORTIVE OF DIAGNOSIS OF [place] 0.06 - 0.50 ng/ml INDETERMINATE: SUGGEST SERIAL STUDIES IF CLINICALLY INDICATED. Greater than 0.5 ng/mL CONSISTENT WITH DIAGNOSIS OF [place] . 25 Anion gap measurement may be of limited value in the presence of any alkalosis, especially in a combined acid base disorder. . 26 Note change in reference range as of 10/18/07. The change was based on recommendations from the [place] [employer]. 27 Please note change in reference range effective 07 . 28 A metabolite of Naproxen, O-desmethylnaproxen, has been shown to interfere with the Jendrassik-[place] method for measuring total bilirubin. Samples from patients who have taken Naproxen have shown spurious elevation in total bilirubin levels. 29 Because ethnic data is not always readily available, this report includes an eGFR for both -Americans and non- Americans. The National Kidney Disease Education Program (NKDEP) does not endorse the use of the MDRD equation for patients that are not between the ages of 18 and 70, are , have extremes of body size, muscle mass, or nutritional status, or are non- or non-. According to the National Kidney Foundation, irrespective of diagnosis, the stage of the disease is based on the level of kidney function: Stage Description GFR(mL/min/1.73 m(2)) 1 Kidney damage with normal or decreased GFR 90 2 Kidney damage with mild decrease in GFR 60-89 3 Moderate decrease in GFR 30-59 4 Severe decrease in GFR 15-29 5 Kidney failure <15 (or dialysis) 30 New Reference Range and Interpretation effective 11/30/01 TnI (ng/ml) INTERPRETATION <0.06 ng/ml NOT SUPPORTIVE OF DIAGNOSIS OF [place] 0.06 - 0.50 ng/ml INDETERMINATE: SUGGEST SERIAL STUDIES IF CLINICALLY INDICATED. > 0.5 ng/ml CONSISTENT WITH DIAGNOSIS OF [place] . 31 THE PERFORMANCE CHARACTERISTICS OF THIS TEST WERE ESTABLISHED THROUGH VALIDATION BY SPECIALTY LABORATORIES, AND NO APPROVAL IS REQUIRED BY THE U.S. FOOD AND DRUG ADMINISTRATION (FDA). SPECIALTY LABORATORIES IS REGULATED UNDER THE CLINICAL LABORATORY IMPROVEMENT AMENDMENTS OF 1988 ("CLIA") QUALIFIED TO PERFORM HIGH COMPLEXITY CLINICAL TESTING. TEST PERFORMED BY: [employer] [address] [place] [address] 32 PLT'S APPEAR NORMAL ON SMEAR FEW OVALOCYTES Procedures Date CPT Code Description Status Comment 10/28/2016 Mammogram Completed 06/09/2014 04710 Pulse Oximetry Completed 05/11/2013 94855 Pulse Oximetry Completed 11/09/2012 Mammogram Completed 08/08/2011 58550 Pulse Oximetry Completed 01/12/2011 Mammogram Completed 09/26/2007 96171 Remove Foreign Body Subcutaneous Simple Completed 05/31/2006 Mammogram Completed 02/27/2003 Colonoscopy Completed [facility] Encounters Type Date Location Provider CPT E/M Dx Office Visit 07/16/2014 7:00p Main Office Ana Paula Mcclendon, 33850 461.1 Afnp-C Office Visit 06/16/2014 2:40p Main Office Giancarlo Mackay M.D. 59798 461.1 Office Visit 06/09/2014 10:50a [facility] Kervin Ray M.D. 86844 486 Office Visit 01/16/2014 1:00p [facility] Radha Brown M.D. 49661 V70.0 401.1 995.3 278.00 268.9 780.79 401.9 790.6 Office Visit 05/11/2013 10:15a [place] [address] 786.2 786.05 Office Visit 04/17/2013 9:00a [place] [address] 465.9 786.2 787.02 787.91 724.2 Office Visit 03/27/2013 1:30p [place] [address] 461.9 726.32 Office Visit 02/05/2013 3:00p [facility] Richard Collado M.D. 92501 372.30 465.9 840.9 Office Visit 11/02/2012 1:30p [facility] Alexia Rosario, PEDIATRIC SPEECH THERAPIST 86573 401.1 272.2 268.9 Office Visit 10/08/2012 1:15p Main Office Alexia Rosario, PEDIATRIC SPEECH THERAPIST 03944 401.1 782.3 Office Visit 08/23/2012 3:40p [facility] Radha Brown M.D. 91507 786.59 724.2 Office Visit 08/16/2012 1:00p [facility] Radha Brown M.D. 05224 724.2 995.3 564.09 Office Visit 07/24/2012 1:00p [facility] Laura Finch, [facility] 96965 724.2 382.00 Office Visit 06/22/2012 11:20a [facility] Radha Brown M.D. 73736 724.2 Office Visit 04/19/2012 1:40p [facility] Office Radha Brown M.D. 94067 724.2 719.46 Office Visit 04/02/2012 1:00p [facility] Prosper Hanson M.D. 32383 724.2 Office Visit 03/08/2012 1:30p [facility] Office Inés Gann np-C 47937 524.60 Office Visit 11/18/2011 10:40a [facility] Radha Brown M.D. 46686 719.46 784.0 787.20 Office Visit 09/13/2011 4:00p Main Office Radha Brown M.D. 80240 729.5 728.71 Office Visit 08/08/2011 2:20p [facility] Loreta Johnson M.D. 09836 786.2 Office Visit 06/29/2011 6:10p Main Office Giancarlo Mackay M.D. 78538 461.9 Office Visit 05/31/2011 2:50p Main Office Radha Brown M.D. 27254 729.5 Office Visit 04/25/2011 8:20p Main Office Catalina Weathers 43459 719.46 MPatrizia 278.00 Office Visit 03/24/2011 4:00p Main Office Catalina Weathers M.D. 63219 729.1 Office Visit 03/10/2011 3:20p Main Office Catalina Weathers M.D. 41578 719.47 786.05 723.1 Office Visit 02/07/2011 8:00p Main Office Catalina Weathers M.D. 35945 729.1 719.42 719.47 278.00 V70.0 Office Visit 01/27/2011 1:40p Main Office Catalina Weathers M.D. 54815 719.42 780.39 729.1 Office Visit 01/13/2011 9:00a Main Office Luis Kitchen M.D. 02805 782.9 E906.4 910.4 Office Visit 12/11/2010 1:00p Main Office Loreta Johnson M.D. 93735 719.42 Office Visit 12/03/2010 8:20a [facility] Catalina Weathers, 15471 461.0 Radha 796.2 278.00 218.9 Office Visit 04/29/2009 10:15a [facility] Office Dione Paul [facility] 32619 461.0 Office Visit 03/14/2009 9:45a [facility] Office Dione Paul [facility] 71360 465.9 Office Visit 12/25/2008 1:30p Main Office Laura Ng-C 36193 906.1 V58.32 Office Visit 04/11/2008 3:50p [facility] Office Laura Munguia, 49156 780.79 M.DMegan Office Visit 03/04/2008 11:30a Main Office Prosper Hanson M.D. 80662 461.0 Office Visit 01/22/2008 10:30a Main Office Dione Paul [facility] 58248 466.0 Office Visit 10/17/2007 11:10a Main Office Jered Kelly M.D. 06264 843.8 Office Visit 07/09/2007 7:45p Main Office Dione Paul [employer] 23531 719.47 Office Visit 04/11/2007 7:40p Main Office Prosper Hanson M.D. 39036 465.9 Office Visit 03/14/2007 11:00a Main Office Prosper Hanson M.D. 26161 465.9 Office Visit 10/04/2006 3:20p Main Office Laura Munguia, 09039 493.90 M.DMegan Office Visit 09/29/2006 11:20a [facility] Laura Munguia, 52573 780.6 M.DMegan 465.9 493.90 Office Visit 09/23/2006 11:30a Main Office Jered Kelly M.D. [id number] [phone] Office Visit 07/14/2006 3:30p [facility] Office Laura Munguia [address]118 723.1 M.D. Office Visit 04/03/2006 9:10a Main Office Laura Munguia 40303 461.9 M.DMegan 780.54 347.00 Office Visit 02/15/2006 4:20p Main Office Laura Munguia M.D. [id number] 347.00 729.1 724.1 724.2 Plan of Care Future Appointment(s):10/11/2017 3:20 pm - Radha Brown M.D. at [facility] Hvhtab7109/08/2017 3:30 pm - Radha Brown M.D. at [facility] [id number] - Radha Brown M.D.I10 Essential (primary) hypertensionComments:well controlled. continue presente meds.Follow up:1 month. we'll work down the problem list one by one.D50.8 Other iron deficiency anemiasComments:continue the iron for now.I26.99 Other pulmonary embolism without acute cor pulmonaleComments:continue eliquis.K58.0 Irritable bowel syndrome with diarrheaComments:trial of metamucil with 8-16 oz of fluid. might prevent the cramping.AllComments:~B_~U_Medication Management~b_~u_ Patient Understands medications she's taking? Yes No Are there Barriers to Adherence? Yes No Has the patient been asked about herbal supplements and therapies, and OTC meds? Yes No
[2017-08-24 11:11] VITALS: BP 169/92
--- NOTE | 2017-08-24 12:24 | UC ---
Lower Extremity/Ankle HPI - HPI Summary HPI Summary: Patient is a 57-year-old female presenting to the with complaint of right calf pain just inferior to the right knee. She states a few days ago she developed some pain to the anterior portion of the knee and now is having pain to the calf muscle with slight swelling and erythema. 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 She states she has had intermittent calf pain for several years and has a history of arthritis. She is concerned about a DVT d/t her recent history Tenderness on palpation only. - History of Current Complaint Chief Complaint: UCGeneralIllness Stated Complaint: CALF PAIN Time Seen by Provider: 08/24/17 11:22 Hx Obtained From: Patient ?: No Onset/Duration: Sudden Onset Severity Initially: Moderate Severity Currently: Moderate Pain Intensity: 3 Pain Scale Used: 0-10 Numeric Aggravating Factor(s): Standing Alleviating Factor(s): Rest Able to Bear Weight: No - Risk Factors Gout Risk Factors: Negative DVT Risk Factors: Negative - Allergies/Home Medications Allergies/Adverse Reactions: Allergies Allergy/AdvReac Type Severity Reaction Status Date / Time No Known Allergies Allergy Verified 08/24/17 11:12 PMH/Surg Hx/FS Hx/Imm Hx Previously Healthy: Yes - Surgical History Surgical History: Yes Surgery Procedure, Year, and Place: BILAT EYE SURGERY FOR LAZY EYE 1999 SINUS SURGERY. PLASTIC SURGERY ON FACE,. RIGHT SHOULDER FOR IMPINGEMENT 1999. C- SECTION. DIAG LAP FOR ENDOMETRIOSIS IN 20'S. TONSILLECTOMY IN 20'S. D+C. right trigger finger - Social History Occupation: Employed Full-time Lives: With Family Alcohol Use: Occasionally Substance Use Type: None Smoking Status (MU): Never Smoked Tobacco Have You Smoked in the Last Year: No - Immunization History Most Recent Tetanus Shot: not sure Review of Systems Constitutional: Negative Skin: Other - erythema Respiratory: Negative Cardiovascular: Negative Motor: Negative Neurovascular: Negative Musculoskeletal: Arthralgia, Calf Tenderness Neurological: Negative Is Patient Immunocompromised?: No All Other Systems Reviewed And Are Negative: Yes Physical Exam Triage Information Reviewed: Yes Appearance: Well-Appearing, No Pain Distress, Well-Nourished Vital Signs: Initial Vital Signs Temp 98 F 08/24/17 11:07 Pulse 58 08/24/17 11:07 Resp 16 08/24/17 11:07 BP 169/92 08/24/17 11:07 Pulse Ox 98 08/24/17 11:07 Vital Signs Reviewed: Yes Eye Exam: Normal Neck exam: Normal Neck: Positive: Supple Respiratory Exam: Normal Respiratory: Positive: Chest non-tender Cardiovascular Exam: Normal Cardiovascular: Positive: RRR Musculoskeletal Exam: Normal Musculoskeletal: Positive: Strength Intact Neurological: Positive: Alert Psychological: Positive: Normal Response To Family Skin: Positive: Other - no erythema or warmth to the leg, small amount of swelling - unknown source Lower Extremity Course/Dx - Course Course Of Treatment: During the course of treatment, the patient is evaluated for her right sided Pain acute onset this morning. Due to her history of pulmonary embolism, she is concerned over DVT. She is currently on Alquist. She endorses some swelling without erythema or ecchymosis. Denies any known injury. On physical examination there is a small amount of swelling, however it is very localized just inferior to the posterior knee without erythema or ecchymosis. No evidence of thrombophlebitis. Negative Homans sign. Ultrasound shows negative for DVT, superficial thrombophlebitis popliteal cyst. She is encouraged Tylenol for any discomfort and she is given return precautions. - Differential Dx/Diagnosis Provider Diagnoses: calf swelling Discharge - Sign-Out/Discharge Documenting (check all that apply): Discharge/Admit/Transfer - Discharge Plan Condition: Stable Disposition: HOME Referrals: Radha Brown MD [Primary Care Provider] - Additional Instructions: Tylenol as needed for discomfort Warm compresses You may wrap the leg for comfort as well - Billing Disposition and Condition Condition: STABLE Disposition: Home
--- NOTE | 2017-08-24 12:46 | RAD ---
INDICATION: Pain and swelling. COMPARISON: None TECHNIQUE: Duplex interrogation of the Lowerextremity was performed. FINDINGS: Deep veins: The common femoral, great saphenous, profunda femoris, proximal, mid, and distal deep femoral, popliteal, posterior tibial, and peroneal veins are patent. There is normal compressibility, augmentation, and phasic flow. Superficial veins: There are no findings of superficial thrombophlebitis. Popliteal fossa:There is no evidence of a popliteal cyst. Soft tissues:There are no soft tissue abnormalities. IMPRESSION: Normal examination. No evidence of deep venous thrombosis
== END 2017-08-24 13:02 | disposition home or self-care (01) ==
LOC: UCEAST 10:50
DX: M79.89 Other specified soft tissue disorders (principal); M79.1 Myalgia; Z86.711 Personal history of pulmonary embolism
CPT/HCPCS: 99211; G0463

== ENCOUNTER 2022-01-28 11:27 | Observation (INO) ==
[2022-01-28] MEDS ORDERED: Dexamethasone IV 4 MG/ML VIAL 1 ml VIAL ONE (13:28)
[2022-01-28] MEDS ORDERED: Ondansetron 4 mg VIAL 2 MG/ML 2 ml VIAL ONE (13:28)
[2022-01-28] MEDS ORDERED: Rocuronium 50 mg VIAL 10 mg/ml 5 ml VIAL (50 mg) ONE (13:28)
[2022-01-28] MEDS ORDERED: fentaNYL 100 mcg/2 ml 50 MCG/ML VIAL ONE (13:29)
[2022-01-28] MEDS ORDERED: Midazolam 2 mg/2 ml VIAL 1 mg/ml 2 ml VIAL (2 mg) ONE (13:29)
[2022-01-28] MEDS ORDERED: Heparin 2 UNITS/ML IVPREMIX 3,000 UNIT/1,500 ML BAG IV ONE (14:21)
[2022-01-28] MEDS ORDERED: Lidocaine 1% VIAL 10 MG/ML VIAL 30 ML ONE (14:21)
[2022-01-28] MEDS ORDERED: Heparin 1,000 UNIT/ML 10 ml (10,000 UNITS) CATHLAB/DIALYSIS ONE (14:21)
[2022-01-28] MEDS ORDERED: Iohexol 350 (CONTRAST) 100 ML PAK IV ONE ×2 (14:22→16:34)
[2022-01-28] MEDS ORDERED: hydrALAZINE 20 mg/ml 1 ML Vial IV ONE (17:26)
[2022-01-28] MEDS ORDERED: fentaNYL 100 mcg/2 ml 50 MCG/ML VIAL IV PRN (18:01)
[2022-01-28] MEDS ORDERED: oxyCODONE/Acetamin 5/325 mg TAB PO PRN (20:39)
[2022-01-28] MEDS ORDERED: Albuterol HFA INHALER 8 gm MDI INH PRN (22:03)
[2022-01-29] MEDS: Mometasone/Formoter 100/5 MDI INH SCH ×2 (06:35→08:25)
[2022-01-29] MEDS ORDERED: Fluticasone NASAL SPRAY 50MCG 16 gm SPRAY BTL INTRANASAL SCH (09:00)
[2022-01-29 12:15] VITALS: BP 119/77
== END 2022-01-29 13:00 | disposition home or self-care (01) ==
LOC: SSU 11:27 → OR 11:27
PROVIDERS: ADMIT Radiology Diagnostic Radiology; ATTEND Radiology Diagnostic Radiology